=== PATIENT | female | born 1940 | race Caucasian/White ===

== ENCOUNTER 2017-08-06 15:26 | Emergency (ER) | payer BC, MEDICARE ==
[~2017-08-06] VITALS: Ht 154.9 cm; Wt 61.7 kg
[~2017-08-06 15:26] MED LIST: ACET500; ADAL40PEN INJ; ALBU90OI INH; ALBU90OI6 INH; ALVESCO INH; ASPI81CH; ATOR40TA PO; AZIT500 PO; Amlodipine Besyl5 MG PO; BUDE.25 INH; CALCAVITD PO; CENTRUM SILVER1 EAC2 PO; CHOL10002 PO; DICLOFENAC-MIS1 EAC1 PO; DICMIS50EC PO; ESTR1; Estradiol0.5 MG PO; FERR325 PO; FEXO180; FOLI1; FURO20 PO; Flonase 0.05% N16 GM; HYDSUL200 PO; Hydrocodone-Ap1 EA23 PO; METTREX2.5; NABU500; OMEP10ER; OXYACE5T PO; Omeprazole20 M1 PO; PAIN MED; PRED10 PO; PRED5 PO; PROLIA60 MG/1 ML SQ; REMICADE; SIMPONI50 MG/0.1 SQ; TELMISARTAN80 MG PO; TIOT18 INH; Toviaz4 MG PO; Toviaz8 MG PO; Vitamin C100 M1 PO; [UNRECOGNIZED DRUG - OTHER]
[2017-08-06] MEDS ORDERED: HYDSUL200 PO (16:00)
[2017-08-06 16:29] LABS: Source, Urine Clean Catch
[2017-08-06 16:32] LABS: Appearance, Urine Clear (Clear); Bilirubin, Urine Neg (Neg); Blood, Urine 3+ (Neg); Color, Urine Yellow (P-Yellow); Glucose Qualitative, Urine Neg (Neg); Ketones, Urine Neg (Neg); Leukocyte Esterase, Urine 1+ (Neg); Nitrite, Urine Neg (Neg); Protein, Urine 1+ (Neg); Urobilinogen, Urine NORM (Normal); pH, Urine 6.5 (5.0-8.0)
[2017-08-06 16:34] LABS: BASOPHILS ABSOLUTE AUTO 0.07 K/mm3 (0.00-0.23); BASOPHILS PERCENT AUTO 1 % (0-2); EOSINOPHILS ABSOLUTE AUTO 0.26 K/mm3 (0.00-0.68); EOSINOPHILS PERCENT AUTO 3 % (0-6); Hematocrit 35.3 % (33.0-51.0); Hemoglobin 11.7 g/dL (11.5-16.0); IMMATURE GRAN ABSOLUTE AUTO 0.05 K/mm3 (0.00-0.10); IMMATURE GRAN PERCENT AUTO 1 % (0-1); LYMPHOCYTES ABSOLUTE AUTO 1.22 K/mm3 (0.84-5.20); LYMPHOCYTES PERCENT AUTO 15 % (21-46); MONOCYTES ABSOLUTE AUTO 1.09 K/mm3 (0.16-1.47); MONOCYTES PERCENT AUTO 13 % (4-13); Mean Corpuscular HGB 31.1 pg (26.0-34.0); Mean Corpuscular HGB Conc 33.1 g/dL (31.5-36.5); Mean Corpuscular Volume 94 fL (80-100); Mean Platelet Volume 10.9 fL (9.1-12.4); NEUTROPHILS ABSOLUTE AUTO 5.58 K/mm3 (1.96-9.15); NEUTROPHILS PERCENT AUTO 68 % (41-73); Platelet Count 183 K/mm3 (150-400); RDW Coefficient Variation 11.9 % (11.7-14.2); RDW Standard Deviation 40.8 fL (35.1-46.3); Red Blood Cell Count 3.76 M/mm3 (3.80-5.20); White Blood Cell Count 8.27 K/mm3 (4.00-11.30)
[2017-08-06 16:42] LABS: Bacteria Few /hpf; Squamous Epithelial Cells Few /hpf (Few); White Blood Cells, Urine 0-2 /hpf (0-5)
[2017-08-06] MEDS ORDERED: HYDR1TAB94 PO (17:13)
[2017-08-06] MEDS ORDERED: CEPH500 PO (17:13)
[2017-08-06 17:18] LABS: Alanine Aminotransfer (ALT/SGP 21 U/L (12-78); Albumin, Blood 4.4 g/dL (3.4-5.0); Albumin/Globulin Ratio 1.4 (0.8-1.8); Alk Phos 49 U/L (50-136); Anion Gap 10 mmol/L (6-16); Aspartate Aminotrans (AST/SGOT 26 U/L (12-37); Bilirubin, Total 0.4 mg/dL (0.1-1.0); Blood Urea Nitrogen 17 mg/dL (8-24); Bun/Creatinine Ratio 21.6 (12.0-20.0); CO2, Blood 24 mmol/L (21-32); Calcium, Blood 9.1 mg/dL (8.5-10.1); Chloride, Blood 102 mmol/L (98-108); Creatinine, Blood 0.79 mg/dL (0.40-1.00); Globulin, Blood 3.1 g/dL (2.2-4.0); Glomerular Filtration Rate >60 (60-); Glucose, Blood 89 mg/dL (70-99); Potassium, Blood 4.2 mmol/L (3.5-5.5); Sodium, Blood 136 mmol/L (136-145); Total Protein, Blood 7.5 g/dL (6.4-8.2)
[2017-12-15] MEDS ORDERED: AMLO5 (13:40)
[2017-12-15] MEDS ORDERED: ACTEMRA162 MG/0.9 (13:44)
[2017-12-15] MEDS ORDERED: FERSU90EL (13:45)
== END 2017-08-06 17:47 | disposition home or self-care (01) ==
LOC: ER 15:26
PROVIDERS: Emergency Medicine
DX: N39.0 Urinary tract infection, site not specified (principal); R10.9 Unspecified abdominal pain; J44.9 Chronic obstructive pulmonary disease, unspecified; I10 Essential (primary) hypertension; K21.9 Gastro-esophageal reflux disease without esophagitis; D64.9 Anemia, unspecified; Z88.8 Allergy status to other drugs, medicaments and biological substances; Z79.899 Other long term (current) drug therapy; Z79.82 Long term (current) use of aspirin; Z87.891 Personal history of nicotine dependence
CPT/HCPCS: 74176; 80053; 81001; 85025; 87086; 96374; 96375; 99284; J1170; J1885; J2405

== ENCOUNTER 2017-12-22 13:02 | Day surgery (SDC) | payer BC, MEDICARE ==
[~2017-12-22] VITALS: Ht 154.9 cm; Wt 59.6 kg
[~2017-12-22 13:02] MED LIST changes: +ACTEMRA162 MG/0.9; +AMLO5; +CEPH500 PO; +FERSU90EL; +HYDR1TAB94 PO
== END 2017-12-22 15:01 | disposition home or self-care (01) ==
LOC: ORSCSDS 13:02
PROVIDERS: Surgery
PROC: 0DBK8ZX Excision of Ascending Colon, Via Natural or Artificial Opening Endoscopic, Diagnostic (ICD-10-PCS; principal; 2017-12-22 14:15)
DX: Z12.11 Encounter for screening for malignant neoplasm of colon (principal); D12.2 Benign neoplasm of ascending colon; K57.30 Diverticulosis of large intestine without perforation or abscess without bleeding; I10 Essential (primary) hypertension; J44.9 Chronic obstructive pulmonary disease, unspecified; K21.9 Gastro-esophageal reflux disease without esophagitis; D64.9 Anemia, unspecified; E78.5 Hyperlipidemia, unspecified; Z86.010 Personal history of colon polyps; Z87.891 Personal history of nicotine dependence; Z79.899 Other long term (current) drug therapy
CPT/HCPCS: 88305; J7120

== ENCOUNTER → 2019-05-16 | Outpatient (CLI) | payer MEDICARE, OTHER ==
[~2019-05-16] MED LIST changes: +ABAT250V; +TIOT18
[2019-05-17 14:22] LABS: Stool Occult Bld Immuno 1 Negative (NEGATIVE)
== END | disposition home or self-care (01) ==
LOC: LAB EV 13:29
PROVIDERS: Physician Assistant
DX: Z12.11 Encounter for screening for malignant neoplasm of colon (principal); Z12.12 Encounter for screening for malignant neoplasm of rectum
CPT/HCPCS: G0328

== ENCOUNTER 2019-06-07 08:40 | Day surgery (SDC) | payer MEDICARE, OTHER ==
[~2019-06-07] VITALS: Ht 157.5 cm; Wt 65.2 kg
[~2019-06-07 08:40] MED LIST changes: -ABAT250V; -TIOT18
[2019-06-07] MEDS ORDERED: TIOT18 (09:46)
[2019-06-07] MEDS ORDERED: ABAT250V (09:46)
== END 2019-06-07 10:55 | disposition home or self-care (01) ==
LOC: ORSCSDS 08:40
PROVIDERS: Surgery
PROC: 0DJD8ZZ Inspection of Lower Intestinal Tract, Via Natural or Artificial Opening Endoscopic (ICD-10-PCS; principal; 2019-06-07 10:00)
PROC: 0DJ08ZZ Inspection of Upper Intestinal Tract, Via Natural or Artificial Opening Endoscopic (ICD-10-PCS; principal; 2019-06-07 10:00)
DX: R19.4 Change in bowel habit (principal); R10.13 Epigastric pain; K21.9 Gastro-esophageal reflux disease without esophagitis; K44.9 Diaphragmatic hernia without obstruction or gangrene; E78.5 Hyperlipidemia, unspecified; I10 Essential (primary) hypertension; J45.909 Unspecified asthma, uncomplicated; J44.9 Chronic obstructive pulmonary disease, unspecified; Z87.891 Personal history of nicotine dependence; Z79.82 Long term (current) use of aspirin; Z79.899 Other long term (current) drug therapy
CPT/HCPCS: J2704; J7120

== ENCOUNTER → 2019-10-02 | Outpatient (CLI) | payer MEDICARE, OTHER ==
[~2019-10-02] MED LIST changes: +ABAT250V; +TIOT18
== END | disposition home or self-care (01) ==
LOC: LAB EV 12:11 → LAB SHORT 12:11
DX: R05 Cough (principal)
CPT/HCPCS: U0003

== ENCOUNTER → 2020-06-13 | Outpatient (CLI) | payer MEDICARE, OTHER ==
[~2020-06-13] MED LIST changes: +AMLO10 PO; -AMLO5; -ASPI81CH; +Aspir 8181 MG PO; +CLON.1 PO; +COMPAZINE10 MG PO; +CYCL0.05OP BOTHEYES; +HYDCHL25 PO; +STIOLTO RESPIMAT4 G1 INH; +[UNRECOGNIZED DRUG - OTHER]
== END | disposition home or self-care (01) ==
LOC: LAB SHORT 15:24
DX: R82.79 Other abnormal findings on microbiological examination of urine (principal)
CPT/HCPCS: 87077; 87086; 87186

== ENCOUNTER 2020-09-08 08:00 | Observation (INO) | payer MEDICARE, OTHER ==
[~2020-09-08] VITALS: Ht 154.9 cm; Wt 70.2 kg
[~2020-09-08 08:00] MED LIST changes: -ALBU90OI INH; -AMLO10 PO; -ATOR40TA PO; -Aspir 8181 MG PO; -CLON.1 PO; -COMPAZINE10 MG PO; -CYCL0.05OP BOTHEYES; -Estradiol0.5 MG PO; -HYDCHL25 PO; -Omeprazole20 M1 PO; -STIOLTO RESPIMAT4 G1 INH; -TELMISARTAN80 MG PO; -[UNRECOGNIZED DRUG - OTHER]
[2020-09-08 08:35] LABS: BASOPHILS ABSOLUTE AUTO 0.05 K/mm3 (0.00-0.23); BASOPHILS PERCENT AUTO 0 % (0-2); EOSINOPHILS ABSOLUTE AUTO 0.21 K/mm3 (0.00-0.68); EOSINOPHILS PERCENT AUTO 2 % (0-6); Hematocrit 30.7 % (33.0-51.0); Hemoglobin 9.6 g/dL (11.5-16.0); IMMATURE GRAN ABSOLUTE AUTO 0.08 K/mm3 (0.00-0.10); IMMATURE GRAN PERCENT AUTO 1 % (0-1); LYMPHOCYTES ABSOLUTE AUTO 1.48 K/mm3 (0.84-5.20); LYMPHOCYTES PERCENT AUTO 12 % (21-46); MONOCYTES ABSOLUTE AUTO 1.16 K/mm3 (0.16-1.47); MONOCYTES PERCENT AUTO 9 % (4-13); Mean Corpuscular HGB Conc 31.3 g/dL (31.5-36.5); Mean Corpuscular Volume 93 fL (80-100); Mean Platelet Volume 10.6 fL (9.1-12.4); NEUTROPHILS ABSOLUTE AUTO 9.81 K/mm3 (1.96-9.15); NEUTROPHILS PERCENT AUTO 77 % (41-73); Platelet Count 236 K/mm3 (150-400); RDW Coefficient Variation 15.4 % (11.7-14.2); RDW Standard Deviation 52.5 fL (35.1-46.3); Red Blood Cell Count 3.31 M/mm3 (3.80-5.20); White Blood Cell Count 12.79 K/mm3 (4.00-11.30)
[2020-09-08 08:39] LABS: Alanine Aminotransfer (ALT/SGP 18 U/L (12-78); Albumin, Blood 3.4 g/dL (3.4-5.0); Alk Phos 69 U/L (50-136); Anion Gap 7 mmol/L (6-16); Aspartate Aminotrans (AST/SGOT 14 U/L (12-37); Bilirubin, Total 0.3 mg/dL (0.1-1.0); Blood Urea Nitrogen 13 mg/dL (8-24); Bun/Creatinine Ratio 15.2 (12.0-20.0); CO2, Blood 23 mmol/L (21-32); Calcium, Blood 8.7 mg/dL (8.5-10.1); Chloride, Blood 108 mmol/L (98-108); Creatinine, Blood 0.85 mg/dL (0.40-1.00); Globulin, Blood 3.5 g/dL (2.2-4.0); Glomerular Filtration Rate >60 (60-); Glucose, Blood 127 mg/dL (70-99); Potassium, Blood 4.1 mmol/L (3.5-5.5); Sodium, Blood 138 mmol/L (136-145); Total Protein, Blood 6.9 g/dL (6.4-8.2)
[2020-09-08] MEDS ORDERED: PROLIA60 MG/1 ML SQ (09:32)
[2020-09-08] MEDS ORDERED: [UNRECOGNIZED DRUG - OTHER] (09:33)
[2020-09-08 12:06] LABS: Source, Urine Clean Catch
[2020-09-08 12:18] LABS: Appearance, Urine Clear (Clear); Bilirubin, Urine Neg (Neg); Blood, Urine Neg (Neg); Color, Urine Yellow (P-Yellow); Glucose Qualitative, Urine Neg (Neg); Ketones, Urine Neg (Neg); Leukocyte Esterase, Urine Neg (Neg); Nitrite, Urine Neg (Neg); Protein, Urine Neg (Neg); Urobilinogen, Urine NORM (Normal)
[2020-09-08] MEDS ORDERED: Estradiol0.5 MG PO (13:03)
[2020-09-08] MEDS ORDERED: ALBU90OI INH (13:04)
[2020-09-08] MEDS ORDERED: Omeprazole20 M1 PO (13:04)
[2020-09-08] MEDS ORDERED: CLON.1 PO (13:05)
[2020-09-08] MEDS ORDERED: CYCL0.05OP BOTHEYES (13:05)
[2020-09-08] MEDS ORDERED: ATOR40TA PO (13:05)
[2020-09-08] MEDS ORDERED: AMLO10 PO (13:06)
[2020-09-08] MEDS ORDERED: HYDCHL25 PO (13:06)
[2020-09-08] MEDS ORDERED: FURO20 PO (13:07)
[2020-09-08] MEDS ORDERED: STIOLTO RESPIMAT4 G1 INH (13:08)
[2020-09-08] MEDS ORDERED: TELMISARTAN80 MG PO (13:08)
[2020-09-08] MEDS ORDERED: Aspir 8181 MG PO (13:09)
--- NOTE | 2020-09-08 17:53 | NUR ---
PT ADMITTED THIS YESENIA. PT A/O PLEASANT TALKATIVE. TEASING SOME. HUSB AT BEDSIDE. PT A/O X3 H/R REG, NO MURMER NOTED. NO TELE. LUNGS CLEAR, RESP EASY, UNLABORED. ON RA. BT X4 LAST BM TODAY. STATES NORMAL. VOIDS FREQUENCY. 1 ASST FOR BALANCE, AMBULATED TO BATHROOM EASILY X1 THIS YESENIA. GAITE BELT AND FWW FOR SAFETY. NO EDEMA NOTED. PULSES X4 EXT STRONG. BED IN LOW POSITION, CALL LITE IN REACH, CALLS APPROP
--- NOTE | 2020-09-08 19:38 | NUR ---
ASSUMPTION OF CARE. AOX3, COOPERATIVE. REPORTS THE DIZZINESS IS MOSTLY WHEN SHE GETS UP OR STANDS. LESS OFTEN WHEN SHE IS JUST MOVING AROUND IN BED. SHE ALSO HAS RINGING OF THE EARS WHICH SHE HAS HAD FOR SEVERAL OF YEARS. NO VISION CHANGES OR OTHER COMPLAINTS OF HEADACHE OR PAIN. DOES HAVE N/T OF THE FEET AROUND THE TOES ALSO HER NORM. GOT HER UP TO BATHROOM, SHE AMBULATED WELL, DID LEAN WHEN THE DIZZINESS STARTED BUT DID WELL. LUNGS ARE CLEAR. HR SINUS. NO PAIN OTHER THEN HER NORMAL ARTHRITIS. WILL CALL THE DOCTOR TO GET TYLENOL ORDERED. DENIES ANY OTHER NEEDS. PATIENT BACK TO BED.
--- NOTE | 2020-09-09 05:10 | NUR ---
SHIFT SUMMARY: AOX3, 1 ASSIST TO THE BATHROOM, DOES GET DIZZY UPON STANDING, WOBBLY OCCATIONALLY WHEN WALKING BUT IS IMPROVING. VS WNL, AFEBRILE. LOWERY WHICH WAS MEDICATED WITH TYLENOL. ALSO TAKES TYLENOL FOR ARTHRITIC PAIN AT NIGHT. HAS SLEPT WELL T/O THE NIGHT AND USES THE CALL LIGHT APPROPRIATLY. NO OTHER ACUTE CHANGES TO REPORT. CALL LIGHT IS IN REACH.
[2020-09-09 05:17] LABS: BASOPHILS ABSOLUTE AUTO 0.04 K/mm3 (0.00-0.23); BASOPHILS PERCENT AUTO 1 % (0-2); EOSINOPHILS PERCENT AUTO 2 % (0-6); Hematocrit 28.3 % (33.0-51.0); Hemoglobin 8.8 g/dL (11.5-16.0); IMMATURE GRAN ABSOLUTE AUTO 0.02 K/mm3 (0.00-0.10); IMMATURE GRAN PERCENT AUTO 0 % (0-1); LYMPHOCYTES ABSOLUTE AUTO 1.73 K/mm3 (0.84-5.20); LYMPHOCYTES PERCENT AUTO 21 % (21-46); MONOCYTES ABSOLUTE AUTO 0.91 K/mm3 (0.16-1.47); MONOCYTES PERCENT AUTO 11 % (4-13); Mean Corpuscular HGB 28.8 pg (26.0-34.0); Mean Corpuscular HGB Conc 31.1 g/dL (31.5-36.5); Mean Corpuscular Volume 93 fL (80-100); NEUTROPHILS ABSOLUTE AUTO 5.47 K/mm3 (1.96-9.15); NEUTROPHILS PERCENT AUTO 65 % (41-73); Platelet Count 218 K/mm3 (150-400); RDW Coefficient Variation 15.7 % (11.7-14.2); RDW Standard Deviation 53.2 fL (35.1-46.3); Red Blood Cell Count 3.06 M/mm3 (3.80-5.20); White Blood Cell Count 8.37 K/mm3 (4.00-11.30)
[2020-09-09 05:43] LABS: Alanine Aminotransfer (ALT/SGP 14 U/L (12-78); Albumin, Blood 3.1 g/dL (3.4-5.0); Albumin/Globulin Ratio 0.9 (0.8-1.8); Alk Phos 60 U/L (50-136); Anion Gap 6 mmol/L (6-16); Aspartate Aminotrans (AST/SGOT 13 U/L (12-37); Bilirubin, Total 0.5 mg/dL (0.1-1.0); Blood Urea Nitrogen 11 mg/dL (8-24); Bun/Creatinine Ratio 13.5 (12.0-20.0); CO2, Blood 24 mmol/L (21-32); Calcium, Blood 8.7 mg/dL (8.5-10.1); Chloride, Blood 107 mmol/L (98-108); Creatinine, Blood 0.81 mg/dL (0.40-1.00); Globulin, Blood 3.3 g/dL (2.2-4.0); Glomerular Filtration Rate >60 (60-); Glucose, Blood 87 mg/dL (70-99); Magnesium, Blood 2.3 mg/dL (1.6-2.4); Potassium, Blood 4.4 mmol/L (3.5-5.5); Sodium, Blood 137 mmol/L (136-145); Total Protein, Blood 6.4 g/dL (6.4-8.2)
--- NOTE | 2020-09-09 09:37 | NUR ---
REPORT RECIEVED FROM ANDREI. PT RESTING IN BED. PHYSICAL THERAPY AT BEDSIDE AT THIS TIME
--- NOTE | 2020-09-09 14:19 | NUR ---
CARE COORDINATION REFERRAL - ADMIT:09/08/20 DISCHARGE: DX: VERTIGO CC:CARMENCOX EMMETT CALL: RESIDENCE: HOME WITH SPOUSE CAREGIVER: JULIEN APONTE, SPOUSE / PARTNER, GIOVANY CABELLO, FAMILY MEMBER, DX: ANEMIA, HTN, GERD, COPD, SEE LIST DME: FWW, 4-WHEELED WALKER, SHOWER CHAIR, GRAB BARS CCM: NONE HOME HEALTH: NONE SUMMARY: ADMIT: 09/08/20 09/09/20- PER DR. PRINGLE, PT IS DOING WELL AND WILL POTENTIALLY BE D/C TOMORROW. PER CHART REVIEW, PT HAS HISTORY OF VERTIGO/DIZZINESS. SHE WAS PARTICIPATING IN OUTPATIENT PT AT [facility]. PT AND OT WERE ORDERED IN THE HOSPITAL. PT'S RECOMMENDATION ARE FOR PT TO RESUME OUTPATIENT PT WITH [facility]. OT IS RECOMMENDING PT RETURN HOME WITH NATURAL SUPPORTS FROM HER SPOUSE AND TO [facility] OUTPT. PT SERVICES. -MACIEL
[2020-09-09] MEDS ORDERED: COMPAZINE10 MG PO (16:19)
--- NOTE | 2020-09-09 16:44 | NUR ---
DISCHARGE INSTRUCTIONS COMPLETED AND DISCUSSED WITH PT EXPRESSING UNDERSTANDING. ASKING FOR SAME MEDICATION THAT SHE FELT HELPED HER VERTIGO YESTERDAY IN ED. CALLED MD AND RECEIVED DISCHARGING ORDER FOR COMPEDA. TO [facility] VIA W/C WITH IN ATTENDANCE.
--- NOTE | 2020-09-09 18:16 | NUR ---
Spiritual care note: Mrs. Bonilla reports a strong jaydon, supportive spouse, and hope for recovery. She has a bright spirit and chatted happily about her life. She wanted prayer for healing and for her beloved . I happily complied. She is being d/c today and denied fears/concerns.
== END 2020-09-09 16:31 | disposition home or self-care (01) ==
LOC: ER 08:00 → MEDS 08:01 → ER 14:37 → MEDS 14:37
PROVIDERS: Emergency Medicine; ADMIT Internal Medicine
DX: R42 Dizziness and giddiness (principal); I65.29 Occlusion and stenosis of unspecified carotid artery; J44.9 Chronic obstructive pulmonary disease, unspecified; K21.9 Gastro-esophageal reflux disease without esophagitis; I10 Essential (primary) hypertension; H90.5 Unspecified sensorineural hearing loss; M81.0 Age-related osteoporosis without current pathological fracture; N32.81 Overactive bladder; M06.9 Rheumatoid arthritis, unspecified; Z86.69 Personal history of other diseases of the nervous system and sense organs; Z87.891 Personal history of nicotine dependence; Z79.82 Long term (current) use of aspirin
CPT/HCPCS: 36415; 70450; 80053; 81003; 83735; 84484; 85025; 87086; 93005; 93010; 94640; 94760; 96374-59; 96375-59; 97116; 97162; 97165; 97535; 99285-25; A9270; G0378; J0780; J1200; J1650; J7030; P9612

== ENCOUNTER 2020-09-25 17:08 | Emergency (ER) | payer OTHER, MEDICARE ==
[~2020-09-25] VITALS: Ht 157.5 cm; Wt 69.0 kg
[~2020-09-25 17:08] MED LIST changes: +ALBU90OI INH; +AMLO10 PO; +ATOR40TA PO; +Aspir 8181 MG PO; +CLON.1 PO; +COMPAZINE10 MG PO; +CYCL0.05OP BOTHEYES; +Estradiol0.5 MG PO; +HYDCHL25 PO; +Omeprazole20 M1 PO; +STIOLTO RESPIMAT4 G1 INH; +TELMISARTAN80 MG PO; +[UNRECOGNIZED DRUG - OTHER]
== END 2020-09-25 19:30 | disposition home or self-care (01) ==
LOC: ER 17:08
DX: S16.1XXA Strain of muscle, fascia and tendon at neck level, initial encounter (principal); S39.012A Strain of muscle, fascia and tendon of lower back, initial encounter; S20.212A Contusion of left front wall of thorax, initial encounter; Z88.8 Allergy status to other drugs, medicaments and biological substances; V49.40XA Driver injured in collision with unspecified motor vehicles in traffic accident, initial encounter; Y92.410 Unspecified street and highway as the place of occurrence of the external cause
CPT/HCPCS: 71046; 72040; 72100; 99284-25; A9270

== ENCOUNTER → 2021-03-13 | Outpatient (CLI) | payer MEDICARE, OTHER | END | disposition home or self-care (01) | LOC: LAB 17:35 → LAB SHORT 17:35 | DX: N39.0 Urinary tract infection, site not specified (principal) | CPT/HCPCS: 87086 ==

== ENCOUNTER 2021-04-07 06:54 | Day surgery (SDC) | payer MEDICARE, OTHER ==
[~2021-04-07] VITALS: Ht 154.9 cm; Wt 64.5 kg
[~2021-04-07 06:54] MED LIST changes: +Isosorbide Mono30 MG PO; +METO25ER PO
[2021-04-07] MEDS ORDERED: NITR.4SL SL (07:36)
[2021-04-07] MEDS ORDERED: STIOLTO RESPIMAT4 G1 INH (07:36)
[2021-04-07] MEDS ORDERED: LEFL20 PO (07:37)
--- NOTE | 2021-04-07 09:33 | NUR ---
PT EATING BREAKFAST, DENIES CURRENT NEEDS. VSS, RIGHT RADIAL SITE CLEAN, DRY, INTACT. TR BAND AND SPLINT IN PLACE.
--- NOTE | 2021-04-07 09:38 | NUR ---
DR ARORA CALLED PT'S SPOUSE, ESTRADA, TO UPDATE HIM WITH ANGIOGRAM RESULTS AND PLAN FOR CARE.
--- NOTE | 2021-04-07 09:40 | NUR ---
RELEASED 3mL AIR FROM BAND. NO BLEEDING, OOZING OR HEMATOMA NOTED. WILL CONTINUE TO MONITOR
--- NOTE | 2021-04-07 10:31 | NUR ---
ALL AIR HAS BEEN REMOVED FROM TR BAND. NO BLEEDING OR SWELLING NOTED. VSS. PT DRINKING PO FLUIDS, DENIES OTHER NEEDS. CALL LIGHT IN REACH.
--- NOTE | 2021-04-07 11:00 | NUR ---
IV DC'D, CATH INTAC. PT GIVEN DC INSTRUCTIONS AND FOLLOW UP INFO, VERBALIZED UNDERSTANDING. RIGHT RADIAL SITE SOFT AND NON-TENDER. CLOTH DOT DRESSING AND SPLINT IN PLACE. PT OUT TO CAR VIA WHEELCHAIR.
== END 2021-04-07 11:00 | disposition home or self-care (01) ==
LOC: MHTC 06:54
PROC: B2111ZZ Fluoroscopy of Multiple Coronary Arteries using Low Osmolar Contrast (ICD-10-PCS; principal; 2021-04-07)
PROC: 4A023N7 Measurement of Cardiac Sampling and Pressure, Left Heart, Percutaneous Approach (ICD-10-PCS; principal; 2021-04-07)
DX: R07.89 Other chest pain (principal); J44.9 Chronic obstructive pulmonary disease, unspecified; K21.9 Gastro-esophageal reflux disease without esophagitis; I10 Essential (primary) hypertension; Z87.891 Personal history of nicotine dependence; Z88.8 Allergy status to other drugs, medicaments and biological substances; Z79.899 Other long term (current) drug therapy; Z79.82 Long term (current) use of aspirin; E78.5 Hyperlipidemia, unspecified
CPT/HCPCS: 76937; 93005; 93010; 93458; 99152; 99153; C1769; C1894; J1644; J2250; J2370; J3010; J7030; J7050; Q9967

== ENCOUNTER 2021-09-09 18:56 | Emergency (ER) | payer MEDICARE, OTHER ==
[~2021-09-09] VITALS: Ht 154.9 cm; Wt 63.5 kg
[2021-09-09 19:49] LABS: Mean Corpuscular HGB 32.5 pg (26.0-34.0); Mean Corpuscular HGB Conc 28.5 g/dL (31.5-36.5); Mean Corpuscular Volume 114 fL (80-100); Mean Platelet Volume 10.1 fL (9.1-12.4); NRBC ABSOLUTE 0.07 K/mm3 (0.00-0.02); NRBC Auto 0.9 /100 WBC (0.0-0.2); Platelet Count 243 K/mm3 (150-400); RDW Coefficient Variation 18.8 % (11.7-14.2); RDW Standard Deviation 75.3 fL (35.1-46.3); Red Blood Cell Count 1.51 M/mm3 (3.80-5.20); White Blood Cell Count 7.68 K/mm3 (4.00-11.30)
[2021-09-09 19:56] LABS: Hematocrit 17.2 % (33.0-51.0); Hemoglobin 4.9 g/dL (11.5-16.0)
[2021-09-09 20:05] LABS: Albumin, Blood 3.4 g/dL (3.4-5.0); Albumin/Globulin Ratio 1.2 (0.8-1.8); Bilirubin, Total 0.2 mg/dL (0.1-1.0); Bun/Creatinine Ratio 34.9 (12.0-20.0); Calcium, Blood 9.3 mg/dL (8.5-10.1); Creatinine, Blood 0.95 mg/dL (0.40-1.00); Globulin, Blood 2.9 g/dL (2.2-4.0); Potassium, Blood 4.3 mmol/L (3.5-5.5); Total Protein, Blood 6.3 g/dL (6.4-8.2)
[2021-09-09 20:11] LABS: Prothrombin Time Results 10.5 Sec (9.7-11.5)
[2021-09-09 20:23] LABS: BAND PERCENT MAN 3 % (0-8); BASOPHILS ABSOLUTE MAN 0.15 K/mm3 (0.00-0.23); BASOPHILS PERCENT MAN 2 % (0-2); EOSINOPHILS ABSOLUTE MAN 0.23 K/mm3 (0.00-0.68); EOSINOPHILS PERCENT MAN 3 % (0-6); LYMPHOCYTES ABSOLUTE MAN 0.69 K/mm3 (0.84-5.20); LYMPHOCYTES PERCENT MAN 9 % (21-46); MONOCYTES ABSOLUTE MAN 0.76 K/mm3 (0.16-1.47); MONOCYTES PERCENT MAN 10 % (4-13); NEUTROPHILS ABSOLUTE MAN 5.83 K/mm3 (1.96-9.15); SEG NEUTROPHILS PERCENT MAN 73 % (41-73); TOTAL CELLS COUNTED 100
== END 2021-09-10 05:59 | disposition short-term general hospital (02) ==
LOC: ER 18:56
PROVIDERS: Physician Assistant
DX: K92.2 Gastrointestinal hemorrhage, unspecified (principal); D64.9 Anemia, unspecified; J44.9 Chronic obstructive pulmonary disease, unspecified; I10 Essential (primary) hypertension; K21.9 Gastro-esophageal reflux disease without esophagitis
CPT/HCPCS: 36415; 36430; 80053; 85025; 85610; 85730; 86850; 86900; 86901; 86923; 93005; 93010; 96374; 99285-25; C9113; J7030; P9016

== ENCOUNTER → 2021-09-09 | Outpatient (CLI) | payer MEDICARE, OTHER ==
[~2021-09-09] MED LIST changes: +LEFL20 PO; +NITR.4SL SL
[2021-09-09 18:22] LABS: BASOPHILS ABSOLUTE AUTO 0.05 K/mm3 (0.00-0.23); BASOPHILS PERCENT AUTO 1 % (0-2); EOSINOPHILS ABSOLUTE AUTO 0.34 K/mm3 (0.00-0.68); EOSINOPHILS PERCENT AUTO 5 % (0-6); IMMATURE GRAN ABSOLUTE AUTO 0.04 K/mm3 (0.00-0.10); IMMATURE GRAN PERCENT AUTO 1 % (0-1); LYMPHOCYTES ABSOLUTE AUTO 1.15 K/mm3 (0.84-5.20); LYMPHOCYTES PERCENT AUTO 15 % (21-46); MONOCYTES ABSOLUTE AUTO 1.17 K/mm3 (0.16-1.47); MONOCYTES PERCENT AUTO 16 % (4-13); Mean Corpuscular HGB 33.8 pg (26.0-34.0); Mean Corpuscular HGB Conc 30.3 g/dL (31.5-36.5); Mean Corpuscular Volume 112 fL (80-100); NEUTROPHILS ABSOLUTE AUTO 4.73 K/mm3 (1.96-9.15); NEUTROPHILS PERCENT AUTO 63 % (41-73); NRBC ABSOLUTE 0.07 K/mm3 (0.00-0.02); NRBC Auto 0.9 /100 WBC (0.0-0.2); Platelet Count 283 K/mm3 (150-400); RDW Coefficient Variation 18.9 % (11.7-14.2); Red Blood Cell Count 1.48 M/mm3 (3.80-5.20); White Blood Cell Count 7.48 K/mm3 (4.00-11.30)
[2021-09-09 18:36] LABS: BAND PERCENT MAN 4 % (0-8); BASOPHILS ABSOLUTE MAN 0.14 K/mm3 (0.00-0.23); BASOPHILS PERCENT MAN 2 % (0-2); EOSINOPHILS ABSOLUTE MAN 0.44 K/mm3 (0.00-0.68); EOSINOPHILS PERCENT MAN 6 % (0-6); LYMPHOCYTES ABSOLUTE MAN 0.97 K/mm3 (0.84-5.20); LYMPHOCYTES PERCENT MAN 13 % (21-46); METAMYELOCYTE ABSOLUTE MAN 0.22 K/mm3 (0.00-0.00); METAMYELOCYTE PERCENT MAN 3 % (0-0); MONOCYTES ABSOLUTE MAN 0.67 K/mm3 (0.16-1.47); MONOCYTES PERCENT MAN 9 % (4-13); NEUTROPHILS ABSOLUTE MAN 5.01 K/mm3 (1.96-9.15); SEG NEUTROPHILS PERCENT MAN 63 % (41-73); TOTAL CELLS COUNTED 100
[2021-09-09 18:38] LABS: Albumin, Blood 3.3 g/dL (3.4-5.0); Albumin/Globulin Ratio 1.3 (0.8-1.8); Bilirubin, Total 0.2 mg/dL (0.1-1.0); Bun/Creatinine Ratio 32.1 (12.0-20.0); Calcium, Blood 9.2 mg/dL (8.5-10.1); Creatinine, Blood 1.06 mg/dL (0.40-1.00); Globulin, Blood 2.6 g/dL (2.2-4.0); Hematocrit 16.5 % (33.0-51.0); Potassium, Blood 4.3 mmol/L (3.5-5.5); Total Protein, Blood 5.9 g/dL (6.4-8.2)
== END | disposition home or self-care (01) ==
LOC: LAB SHORT 18:19
PROVIDERS: Family Medicine
DX: D64.9 Anemia, unspecified (principal); I20.8 Other forms of angina pectoris
CPT/HCPCS: 80053; 84484; 85025

== ENCOUNTER → 2023-07-05 | Outpatient (CLI) | payer MEDICARE, OTHER ==
[2023-07-05 11:51] LABS: BASOPHILS ABSOLUTE AUTO 0.05 K/mm3 (0.00-0.23); BASOPHILS PERCENT AUTO 1 % (0-2); EOSINOPHILS PERCENT AUTO 2 % (0-6); Hematocrit 25.6 % (33.0-51.0); IMMATURE GRAN ABSOLUTE AUTO 0.03 K/mm3 (0.00-0.10); IMMATURE GRAN PERCENT AUTO 1 % (0-1); LYMPHOCYTES ABSOLUTE AUTO 0.64 K/mm3 (0.84-5.20); LYMPHOCYTES PERCENT AUTO 12 % (21-46); MONOCYTES ABSOLUTE AUTO 1.03 K/mm3 (0.16-1.47); MONOCYTES PERCENT AUTO 19 % (4-13); Mean Corpuscular HGB 29.6 pg (26.0-34.0); Mean Corpuscular HGB Conc 31.3 g/dL (31.5-36.5); Mean Corpuscular Volume 95 fL (80-100); Mean Platelet Volume 10.6 fL (9.1-12.4); NEUTROPHILS ABSOLUTE AUTO 3.69 K/mm3 (1.96-9.15); NEUTROPHILS PERCENT AUTO 67 % (41-73); Platelet Count 259 K/mm3 (150-400); RDW Coefficient Variation 14.4 % (11.7-14.2); RDW Standard Deviation 49.2 fL (35.1-46.3); White Blood Cell Count 5.54 K/mm3 (4.00-11.30)
[2023-07-05 12:12] LABS: Albumin, Blood 3.7 g/dL (3.4-5.0); Albumin/Globulin Ratio 1.1 (0.8-1.8); Bilirubin, Total 0.3 mg/dL (0.1-1.0); Bun/Creatinine Ratio 21.2 (12.0-20.0); Calcium, Blood 9.9 mg/dL (8.5-10.1); Creatinine, Blood 1.56 mg/dL (0.40-1.00); Globulin, Blood 3.4 g/dL (2.2-4.0); Potassium, Blood 3.4 mmol/L (3.5-5.5); Thyroid Stimulating Hormone 1.413 uIU/mL (0.360-4.800); Total Protein, Blood 7.1 g/dL (6.4-8.2)
== END | disposition home or self-care (01) ==
LOC: LAB SHORT 11:47
PROVIDERS: Physician Assistant
DX: R07.9 Chest pain, unspecified (principal); R53.83 Other fatigue
CPT/HCPCS: 80053; 83880; 84443; 84484; 85025

== ENCOUNTER 2023-12-07 10:14 | Observation (INO) | payer MEDICARE, OTHER ==
[~2023-12-07] VITALS: Ht 167.6 cm; Wt 59.6 kg
[~2023-12-07 10:14] MED LIST changes: +ABAT250V IV; +ASPI81CH; +Acetaminophen650 M1 PO; +CALC.25 PO; +Calcium Carbon500 MG; +LOSA25; +LOSA25 PO; +PANT40 PO; +PROLIA60 MG/1 ML
[2023-12-07 11:29] LABS: BASOPHILS ABSOLUTE AUTO 0.05 K/mm3 (0.00-0.23); BASOPHILS PERCENT AUTO 1 % (0-2); EOSINOPHILS ABSOLUTE AUTO 0.15 K/mm3 (0.00-0.68); EOSINOPHILS PERCENT AUTO 3 % (0-6); Hematocrit 23.4 % (33.0-51.0); Hemoglobin 7.3 g/dL (11.5-16.0); IMMATURE GRAN ABSOLUTE AUTO 0.02 K/mm3 (0.00-0.10); IMMATURE GRAN PERCENT AUTO 0 % (0-1); LYMPHOCYTES ABSOLUTE AUTO 0.62 K/mm3 (0.84-5.20); LYMPHOCYTES PERCENT AUTO 13 % (21-46); MONOCYTES ABSOLUTE AUTO 0.83 K/mm3 (0.16-1.47); MONOCYTES PERCENT AUTO 17 % (4-13); Mean Corpuscular HGB 30.5 pg (26.0-34.0); Mean Corpuscular HGB Conc 31.2 g/dL (31.5-36.5); Mean Corpuscular Volume 98 fL (80-100); Mean Platelet Volume 10.5 fL (9.1-12.4); NEUTROPHILS ABSOLUTE AUTO 3.15 K/mm3 (1.96-9.15); NEUTROPHILS PERCENT AUTO 65 % (41-73); Platelet Count 225 K/mm3 (150-400); RDW Coefficient Variation 16.4 % (11.7-14.2); RDW Standard Deviation 56.1 fL (35.1-46.3); Red Blood Cell Count 2.39 M/mm3 (3.80-5.20); White Blood Cell Count 4.82 K/mm3 (4.00-11.30)
[2023-12-07] MEDS ORDERED: calcium PO (11:43)
[2023-12-07 11:44] LABS: International Normalized Ratio 0.95; Prothrombin Time Results 10.2 Sec (9.7-11.5)
[2023-12-07] MEDS ORDERED: ABAT250V PO (11:49)
[2023-12-07 11:51] LABS: Albumin, Blood 3.7 g/dL (3.4-5.0); Albumin/Globulin Ratio 1.2 (0.8-1.8); Bilirubin, Total 0.4 mg/dL (0.1-1.0); Bun/Creatinine Ratio 26.6 (12.0-20.0); Calcium, Blood 9.5 mg/dL (8.5-10.1); Creatinine, Blood 1.09 mg/dL (0.40-1.00); Globulin, Blood 3.2 g/dL (2.2-4.0); Potassium, Blood 4.2 mmol/L (3.5-5.5); Total Protein, Blood 6.9 g/dL (6.4-8.2)
[2023-12-07] MEDS ORDERED: DERMACINRX FOL1 EAC2 (11:53)
[2023-12-07] MEDS ORDERED: Pantoprazole Sodium 40 MG Injection IV ONE (12:05)
[2023-12-07] MEDS ORDERED: NS 1,000 ML IV SCH (14:05)
[2023-12-07] MEDS ORDERED: Pantoprazole Sodium 40 MG in NS 50 ML IV SCH (14:05)
[2023-12-07] MEDS ORDERED: Ipratropium/Albuterol SulF 2.5-0.5MG/3 ML Amp INH SCH (18:30)
[2023-12-07] MEDS ORDERED: Albuterol HFA200 ACT/6.7 GM INH INH PRN (18:30)
[2023-12-07 19:00] LABS: Hematocrit 20.3 % (33.0-51.0); Hemoglobin 6.4 g/dL (11.5-16.0)
[2023-12-07 19:14] VITALS: BP 149/57
--- NOTE | 2023-12-07 19:25 | NUR ---
CALLED DR STEPHENS- CLARIFIED PT HERE WITH GI BLEED, LOW HGB, NO TELE ORDER. CLARIFIED NO TELE ORDER. INQUIRED ABOUT REPEAT H&H RESULT HGB DOWN TO 6.4 FROM 7.[address] ORDER FOR BLOOD SOON.
--- NOTE | 2023-12-07 19:47 | NUR ---
shift report took report from ER nurse GI bleed during shift change. patient on ra 18 gauge on L a/d. no nausea, no vomiting and no current patient on prontix bolus and prontix contineous infusion. vss, no pain report, no distress noted. New nurse will conduct admission assessment.
[2023-12-07] MEDS ORDERED: Calcitriol 0.25 MCG Cap PO SCH (21:00)
[2023-12-07] MEDS ORDERED: NS 250 ML IV PRN (22:50)
[2023-12-07 23:04] VITALS: BP 122/91
[2023-12-07] MEDS ORDERED: NS 500 ML IV SCH (23:45)
[2023-12-07] MEDS ORDERED: NS 500 ML IV ONE (23:47)
[2023-12-07 23:57] VITALS: BP 122/91
[2023-12-08] VITALS (7 sets, daily range): BP systolic 122–145; BP diastolic 58–91
[2023-12-08] MEDS ORDERED: Pantoprazole Sodium 40 MG Injection IV SCH (06:00)
[2023-12-08] MEDS ORDERED: Atorvastatin 10 MG Tab PO SCH (09:00)
[2023-12-08] MEDS ORDERED: Leflunomide 20 MG Tab PO SCH (09:00)
[2023-12-08] MEDS ORDERED: Metoprolol Succinate 50 MG TABCR PO SCH (09:00)
== END 2023-12-08 01:45 | disposition short-term general hospital (02) ==
LOC: ER 10:14 → MEDS 10:15
PROVIDERS: Emergency Medicine; Student in an Organized Health Care Education/Training Program; ADMIT Family Medicine
DX: D62 Acute posthemorrhagic anemia (principal); K92.2 Gastrointestinal hemorrhage, unspecified; I35.0 Nonrheumatic aortic (valve) stenosis; I11.0 Hypertensive heart disease with heart failure; I50.30 Unspecified diastolic (congestive) heart failure; M06.9 Rheumatoid arthritis, unspecified; J44.9 Chronic obstructive pulmonary disease, unspecified; E78.5 Hyperlipidemia, unspecified; E21.3 Hyperparathyroidism, unspecified; Z79.899 Other long term (current) drug therapy
CPT/HCPCS: 36430; 80053; 82272; 85014; 85018; 85025; 85610; 85730; 86850; 86900; 86901; 86923; 93005; 93010; 94640; 94664; 94760; 96365; 96366; 96376; 99285-25; A9270; C9113; G0378; J7030; J7040; P9016

== ENCOUNTER 2024-01-25 18:15 | Emergency (ER) | payer MEDICARE, OTHER ==
[~2024-01-25] VITALS: Ht 154.9 cm; Wt 56.2 kg
[~2024-01-25 18:15] MED LIST changes: +ABAT250V PO; +DERMACINRX FOL1 EAC2; +calcium PO
[2024-01-25 18:49] LABS: BASOPHILS ABSOLUTE AUTO 0.06 K/mm3 (0.00-0.23); BASOPHILS PERCENT AUTO 2 % (0-2); EOSINOPHILS ABSOLUTE AUTO 0.14 K/mm3 (0.00-0.68); EOSINOPHILS PERCENT AUTO 4 % (0-6); Hematocrit 36.8 % (33.0-51.0); Hemoglobin 11.2 g/dL (11.5-16.0); IMMATURE GRAN PERCENT AUTO 0 % (0-1); LYMPHOCYTES ABSOLUTE AUTO 0.58 K/mm3 (0.84-5.20); LYMPHOCYTES PERCENT AUTO 18 % (21-46); MONOCYTES ABSOLUTE AUTO 0.58 K/mm3 (0.16-1.47); MONOCYTES PERCENT AUTO 18 % (4-13); Mean Corpuscular HGB 30.6 pg (26.0-34.0); Mean Corpuscular HGB Conc 30.4 g/dL (31.5-36.5); Mean Corpuscular Volume 101 fL (80-100); Mean Platelet Volume 10.6 fL (9.1-12.4); NEUTROPHILS ABSOLUTE AUTO 1.85 K/mm3 (1.96-9.15); NEUTROPHILS PERCENT AUTO 58 % (41-73); Platelet Count 154 K/mm3 (150-400); RDW Coefficient Variation 17.8 % (11.7-14.2); RDW Standard Deviation 65.8 fL (35.1-46.3); Red Blood Cell Count 3.66 M/mm3 (3.80-5.20); White Blood Cell Count 3.21 K/mm3 (4.00-11.30)
[2024-01-25 19:14] LABS: Albumin, Blood 3.9 g/dL (3.4-5.0); Albumin/Globulin Ratio 1.2 (0.8-1.8); Bilirubin, Total 0.8 mg/dL (0.1-1.0); Bun/Creatinine Ratio 15.7 (12.0-20.0); Creatinine, Blood 0.83 mg/dL (0.40-1.00); Globulin, Blood 3.2 g/dL (2.2-4.0); Potassium, Blood 3.5 mmol/L (3.5-5.5); Total Protein, Blood 7.1 g/dL (6.4-8.2)
[2024-01-25] MEDS ORDERED: Ketorolac Tromethamine 15mg Vial IV ONE (22:35)
[2024-01-25] MEDS ORDERED: DiphenhydrAMINE HCl 50 MG/ML 1ML Vial IV ONE (22:40)
[2024-01-25 23:45] VITALS: BP 182/86
== END 2024-01-25 23:51 | disposition home or self-care (01) ==
LOC: ER 18:15
PROVIDERS: Student in an Organized Health Care Education/Training Program
DX: R51.9 Headache, unspecified (principal); Z88.8 Allergy status to other drugs, medicaments and biological substances; Z79.899 Other long term (current) drug therapy; I10 Essential (primary) hypertension; M06.9 Rheumatoid arthritis, unspecified; K21.9 Gastro-esophageal reflux disease without esophagitis
CPT/HCPCS: 70450; 80053; 85025; 93005; 93010; 96374; 96375; 99284-25; J1200; J1885

== ENCOUNTER → 2024-09-05 | Outpatient (CLI) | payer MEDICARE, OTHER ==
[2024-09-05 15:10] LABS: Stool Occult Bld Immuno 1 Negative (NEGATIVE)
== END ==
LOC: LAB 09:45 → LAB SHORT 09:45
PROVIDERS: Nurse Practitioner
DX: D72.810 Lymphocytopenia (principal); D64.9 Anemia, unspecified
CPT/HCPCS: 82274

== ENCOUNTER 2024-10-23 07:01 | Day surgery (SDC) | payer MEDICARE, OTHER ==
[~2024-10-23] VITALS: Ht 154.9 cm; Wt 52.1 kg
[2024-10-23] VITALS (9 sets, daily range): BP systolic 121–172; BP diastolic 58–82
[2024-10-23] MEDS ORDERED: CLOP75 PO (07:32)
[2024-10-23] MEDS ORDERED: OCTREOTIDE50 MCG/10 SC (07:34)
[2024-10-23] MEDS ORDERED: STIOLTO RESPIMAT4 G1 IH (07:36)
[2024-10-23] MEDS ORDERED: Verapamil HCL 2.5 MG/ML 2ML Injection ONE (08:42)
[2024-10-23] MEDS ORDERED: NS 250 ML IV ONE (08:43)
[2024-10-23] MEDS ORDERED: Heparin Sodium 1000 Units/ML 10ML MDV ONE (08:43)
[2024-10-23] MEDS ORDERED: NS 2,000 ML IV ONE (08:43)
[2024-10-23] MEDS ORDERED: FentaNYL Citrate 50 MCG/ML 2 ML Injection ONE (09:07)
--- NOTE | 2024-10-23 09:50 | NUR ---
ASSUMED CARE OF PT. PT ALERT AND ORIENTED, PLEASENT AND COOPERATIVE; DENIES PAIN POST PROCEDURE. MONITOR SR 70'S, B/P 147/58, SPO2 93 % RA. R RADIAL SITE NO SWELLING/HEMATOMA, TR BAND IN PLACE; RUE POSITIVE PLEUTH POST TR BAND PLACEMENT.
--- NOTE | 2024-10-23 12:25 | NUR ---
R RADIAL SITE NO SWELLING/HEMATOMA POST TR BAND DEFLATION.
--- NOTE | 2024-10-23 12:50 | NUR ---
PT DRESSED SELF WITHOUT ISSUE, SITE UNCHANGED. TR BAND REMOVED, CLOTH DOT AND WRIST IMMOBILIZER PLACED; IV REMOVED X 2, CANNULA INTACT X 2.
--- NOTE | 2024-10-23 13:10 | NUR ---
PT AND SPOUSE RECEIVED DISCHARGE INSTRUCTIONS, MED LIST AND AFTER CARE INSTRUCTIONS; VERBALIZED GOOD UNDERSTANDING. PT LEFT FACILITY VIA W/C, CONDITION, STABLE.
== END 2024-10-23 13:10 | disposition home or self-care (01) ==
LOC: MHTC 07:01
DX: I35.0 Nonrheumatic aortic (valve) stenosis (principal); I34.0 Nonrheumatic mitral (valve) insufficiency; E78.00 Pure hypercholesterolemia, unspecified; I10 Essential (primary) hypertension; J44.9 Chronic obstructive pulmonary disease, unspecified; K21.9 Gastro-esophageal reflux disease without esophagitis; I27.20 Pulmonary hypertension, unspecified; I65.23 Occlusion and stenosis of bilateral carotid arteries; G47.33 Obstructive sleep apnea (adult) (pediatric); M06.9 Rheumatoid arthritis, unspecified; I47.19 Other supraventricular tachycardia; Z87.891 Personal history of nicotine dependence; Z79.02 Long term (current) use of antithrombotics/antiplatelets; Z79.899 Other long term (current) drug therapy; Z88.8 Allergy status to other drugs, medicaments and biological substances
CPT/HCPCS: 76937; 93458; 99152; 99153; C1769; C1887; C1894; J1644; J3010; J7030; J7050; Q9967